=== PATIENT | female | born 1995 | race Caucasian/White ===

== ENCOUNTER 2022-06-05 15:17 | Outpatient (CLI) | payer BC, SELFPAY ==
--- NOTE | 2022-06-05 15:30 | MR_ITS ---
[address] [address] Phone:?[phone] Fax:?[phone] Referring Physician Information: Pete Dickson [address] [facility] [address] Phone:?[phone] Fax:?[phone] Patient:Marco Maldonado D.O.B:?1995 Sex:?Female Phone:?[phone] [facility] MRN:?[id number] Exam Date:?06/05/2022 ? EXAM: MRI OF THE RIGHT ANKLE WITHOUT CONTRAST CLINICAL INFORMATION: Right ankle pain. Status post injury. No history of surgery to this area. Evaluate anterior talofibular ligament injury. TECHNICAL INFORMATION: Sagittal STIR as well as axial, sagittal and coronal PD and T2-weighted images were acquired. INTERPRETATION: Tibiotalar joint: No discrete talar dome osteochondral lesion. The tibiotalar joint osteochondral surfaces appear relatively preserved. No abnormal joint effusion and without discrete loose body. Subtalar joints: No discrete osteochondral lesion. No other subchondral signal abnormality. No abnormal joint effusion and without discrete loose body. Other tarsal joints: Remainder of visualized joints of the hindfoot and midfoot do not demonstrate significant narrowing or effusion. There is no evidence of for an occult fracture, osseous contusion or stress reaction. There is no other bone marrow edema pattern identified. Ligaments: The anterior tibiofibular ligament is intact. Residua of an anterior talofibular ligament sprain injury and associated low- grade partial-thickness tear. The posterior tibiofibular and posterior talofibular ligaments are intact. Additional sprain injury with poorly defined partial tearing involves the calcaneofibular ligament. The superficial and deep portions of the medial deltoid ligament are intact. Tendons: The peroneus longus and brevis tendons are intact. No significant tendinopathy, and without tenosynovitis, tendon split or tendon disruption. The posterior tibialis, flexor digitorum and flexor hallucis longus tendons are intact. There is a mild appearance of posterior tibialis tendinopathy inserting upon the navicular. There is a borderline mild appearance of tenosynovitis. The extensor tendons are intact. The Achilles tendon is intact. Plantar aponeurosis: The plantar fascia origin appears normal in signal intensity and morphology. The remainder of the visualized plantar aponeurosis appears unremarkable. Neurovascular structures: The posterior tibial neurovascular structures appear unremarkable coursing past the ankle and through the tarsal tunnel. CONCLUSION: 1. Residua of chronic sprain injuries with partial-thickness tearing involving the anterior talofibular ligament and calcaneofibular ligament. 2. No occult fracture, osseous contusion or osteochondral lesion. 3. Mild tibial posterior insertional tendinopathy onto the navicular. There is a borderline mild appearance of tenosynovitis. 4. No other evidence for internal derangement. KES Electronically signed on 06/06/2022 8:04:00 AM by Tien Mcdaniel M.D.
== END 2022-06-05 15:18 | disposition home or self-care (01) ==
PROVIDERS: PCP Family Medicine; Visit Provider Physician Assistant Surgical
DX: M25.571 Pain in right ankle and joints of right foot (principal); S93.411A Sprain of calcaneofibular ligament of right ankle, initial encounter; S93.491A Sprain of other ligament of right ankle, initial encounter
CPT/HCPCS: 73721

== ENCOUNTER 2023-01-18 11:04 | Outpatient (CLI) | payer BC, SELFPAY | END 2023-01-18 11:05 | disposition home or self-care (01) | PROVIDERS: PCP Family Medicine; Visit Provider Family Medicine | DX: Z01.419 Encounter for gynecological examination (general) (routine) without abnormal findings (principal); D64.9 Anemia, unspecified; R53.83 Other fatigue; Z13.6 Encounter for screening for cardiovascular disorders; Z11.3 Encounter for screening for infections with a predominantly sexual mode of transmission | CPT/HCPCS: 80053; 80061; 82607; 82728; 83540; 83550; 84443 ==

== ENCOUNTER 2024-02-04 11:00 | Outpatient (RCR) | payer BC, SELFPAY | END 2024-04-06 10:33 | disposition home or self-care (01) | PROVIDERS: PCP Family Medicine; Visit Provider Family Medicine | DX: R51.9 Headache, unspecified (principal); Q79.60 Ehlers-Danlos syndrome, unspecified; Z51.89 Encounter for other specified aftercare | CPT/HCPCS: 97110; 97140; 97161 ==

== ENCOUNTER 2024-02-18 07:26 | Outpatient (CLI) | payer BC, SELFPAY ==
--- OUTSIDE RECORDS SUMMARY | 2024-02-24 08:01 | XMS_ITS | Clinical Summary ---
Author Name Unknown Organization [employer] [facility] Address [place], [place] [address] Care Team Providers Care Research Associate Policy Name Role Phone Jessie Menendez MD Primary Care Provider + Allergies Active Allergy Reactions Criticality Noted Date Comments Methylprednisolone Anaphylaxis,Hives High 07/04/2020 Montelukast Anaphylaxis,Hives High 07/04/2020 Naproxen Anaphylaxis High 07/04/2020 Social History Tobacco Use Types Packs/Day Years Used Date Smoking Tobacco: Never Assessed Sex and Gender Information Value Date Recorded Sex Assigned at Not on file Gender Identity Not on file Sexual Orientation Not on file Plan of Treatment Health Maintenance Due Date Last Done Comments Tdap 2005 Depression screening for age 12+ 2006 HIV for age 15-65 2009 BMI (ht and wt on same day) for age 18+ 2012 Hepatitis C screening for ag e 18-79 2012 Tetanus booster 2014 Pap test for age 21-65 2015 COVID-19 vaccine series (2022- season) 2023 Influenza for age 9-49 06/21/2024 Pneumococcal series for age 6-64 Aged Out No longer eligible based on patient's age to complete this topic Care Teams Research Associate Policy Relationship Specialty Start Date End Date Jessie Menendez MD [address] [place] [address] PCP - General Family Practice 06/02/20
== END 2024-02-18 07:27 | disposition home or self-care (01) ==
LOC: NFLDREF 02-24 08:00
PROVIDERS: PCP Family Medicine; Referring Provider Family Medicine; Visit Provider Family Medicine
DX: D64.9 Anemia, unspecified (principal); E78.5 Hyperlipidemia, unspecified; R73.09 Other abnormal glucose; R79.89 Other specified abnormal findings of blood chemistry; M81.0 Age-related osteoporosis without current pathological fracture
CPT/HCPCS: 80053; 80061; 82306; 82607; 82728

== ENCOUNTER 2024-07-21 17:20 | Emergency (ER) | payer BC, SELFPAY ==
[2024-07-21 17:31] VITALS: BP 151/81; PULSE 96; RESP 20; TEMP 36.4; O2SAT 98; BMI 35.8
--- NOTE | 2024-07-21 17:42 | ED_ITS ---
HPI - General Adult General Date Seen: 07/21/24 Chief complaint: Shoulder Injury/Pain Stated complaint: L arm dislocated, discolored/swollen, numb Time Seen by Provider: 07/21/24 17:35 History of Present Illness HPI narrative: 28-year-old female presenting to the ER today with her father (who is a security services manager here at [facility]) for left arm at discoloration and left shoulder pain. 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 She thinks she dislocated her shoulder last week either Saturday or Saturday. She is not sure when. She was having some shoulder pain last week and was able to pop her shoulder back into the socket at home by rolling her shoulder backwards. Even after that he is still having some pain so she went to her chiropractor and they apparently manipulated her shoulder and were able to get it fully reduced. Even since then she has been having ongoing shoulder pain. She went to the urgent care here in [place] last week on 07/17. According to that visit note, after the shoulder was put back place her left arm became numb, red, swollen. She was having some stabbing pain in her left shoulder or left lung last week. She had shoulder x-ray in the urgent care on 07/17 and was read as normal by Radiology. IMPRESSION: 1. No acute osseous injuries or abnormalities are noted. Since then she has had ongoing pain in her anterior shoulder the radiates through to the back of the shoulder. She has been moving her shoulder little bit during the day and coming out of the sling, as advised by her urgent care provider. She also notes that she has had a couple more episodes where she seems to get swollen in the dorsum of her left hand with a little bit of purplish discoloration. She took a picture of her hands with her smart phone during 1 of the episodes. She showed me the picture. There is perhaps very mild duskiness there but no obvious discoloration of the hand. It is not red. It is not obviously cyanotic in the picture. With the ongoing pain and the intermittent symptoms in her left arm she is our primary care for recheck this morning. Workup was reassuring. She was set up with an appointment to see the [place] orthopedic clinic next Saturday. However her primary care doctor told her that if she has any more discoloration or arm she should come to the ER. She was typing on her computer using both hands when she noted another episode of discoloration her left hand that happened this afternoon. With this she came here to the ER. Now that she is here the color in her left arm is back to normal. Related Data Home Medications ?Medication ?Instructions ?Recorded ?Confirmed ascorbic acid (vitamin C) 500 mg mg PO 01/18/23 07/21/24 capsule B-complex with vitamin C 1 tab PO QDAY 03/13/23 07/21/24 cholecalciferol (vitamin D3) 50 50 mcg PO QDAY 03/13/23 07/21/24 mcg (2,000 unit) capsule coenzyme Q10 100 mg capsule 100 mg PO QDAY 03/13/23 07/21/24 cetirizine 10 mg tablet 10 mg PO DAILY PRN 01/01/24 07/21/24 nortriptyline 10 mg capsule 20 mg PO QHS 06/16/24 07/21/24 rizatriptan 5 mg tablet See Rx Instructions PO .COMPLEX 06/16/24 07/21/24 Previous Rx's ?Medication ?Instructions ?Recorded albuterol sulfate 90 mcg/actuation 2 inh inhalation Q2-6H PRN 02/26/24 aerosol inhaler shortness of breath or wheezing #6.7 grams fluticasone furoate 100 1 inh inhalation QDAY #30 ea 02/26/24 mcg/actuation blister powder for inhalation (Arnuity Ellipta) Allergies Allergy/AdvReac Type Severity Reaction Status Date / Time methylprednisolone Allergy Severe hives, Verified 07/21/24 11:04 airway swelling montelukast [From Singulair] Allergy Severe airway Verified 07/21/24 11:04 swelling, hives naproxen Allergy Severe throat Verified 07/21/24 11:04 swelling sulfate ion Allergy Intermediate rash from Verified 07/21/24 11:04 shampoo bee venom protein (honey bee) Allergy Verified 07/21/24 11:04 coconut Allergy Verified 07/21/24 11:04 pine nut Allergy Verified 07/21/24 11:04 Sulfa (Sulfonamide Allergy Verified 07/21/24 11:04 Antibiotics) [facility] Medical History (Updated 07/21/24 @ 20:15 by Matt Salomon MD) History of febrile seizure ?Z87.898 - Personal history of other specified conditions (ICD-10) Vegetarian diet ?Z78.9 - Other specified health status (ICD-10) Obesity (BMI 30-39.9) ?E66.9 - Obesity, unspecified (ICD-10) Hypersomnia ?G47.10 - Hypersomnia, unspecified (ICD-10) Hypermobility syndrome (04/07/12) ?M35.7 - Hypermobility syndrome (ICD-10) Concussion (~2015) ?S06.0X9A - Concussion with loss of consciousness of unspecified duration, initial encounter (ICD-10) Concussion (12/10/09) ?S06.0X9A - Concussion with loss of consciousness of unspecified duration, initial encounter (ICD-10) Atypical chest pain ?R07.89 - Other chest pain (ICD-10) Surgical History (Updated 02/26/24 @ 06:15 by Jessie Menendez MD) Hx of colposcopy with cervical biopsy (02/2023) ?Z98.890 - Other specified postprocedural states (ICD-10) History of knee surgery (2010) ?Z98.890 - Other specified postprocedural states (ICD-10) Family History (Updated 03/20/23 @ 10:31 by Leticia Li ~ INSURANCE CLAIMS SPECIALIST, INSURANCE CLAIMS SPECIALIST) Father Diabetes Type 2 diabetes mellitus Uncle Heart disease, Onset Age: 45 Colon cancer, Onset Age: 60 Mother FH: colon polyps Maternal Grandfather Prostate cancer, Onset Age: 68 Paternal Grandmother Brain cancer Paternal Grandfather Type 2 diabetes mellitus Aunt Breast cancer Maternal Grandmother Heart disease Other Asthma Social History (Updated 02/24/24 @ 07:49 by Veronica Huggins ~ CTA) Narrative: , research program manager, no kids, lives in [place] Lifetime nonsmoker Does not drink alcohol, no drug use No regular exercise Vegetarian diet What is your current living situation?: I presently have a place to live Problems where you live: no known problems In the past 12 months, utilities in danger of being shut off: no In past 12 months, lack of transportation kept you from medical appts, meetings, work, or getting things needed for daily living: no In the past 12 mos, have been you worried that your food would run out before you had money to buy more?: never true In the past 12 mos, the food you bought just didn't last and you didn't have money to buy more?: never true Smoking Status: Never smoker Do you use any of these nicotine containing products: None Second hand tobacco smoke exposure: No How often do you have a drink containing alcohol: monthly or less AUDIT-C Alcohol total score: 1 Non-prescribed substance use: denies use How often does anyone, including family, friends and others, physically hurt you : never How often does anyone, including family, friends and others, insult or talk down to you: rarely How often does anyone, including family, friends and others, threaten you with harm: never How often does anyone, including family, friends and others, scream or curse at you: rarely Little interest or pleasure in doing things: not at all Feeling down, depressed, or hopeless: not at all service: No Exam Narrative: Exam Narrative: Constitutional: Appears well-developed and well-nourished. Alert. Conversant. Non toxic. HENT: Head: Atraumatic. Nose: Nose normal. Mouth/Throat: Oral mucosa is clear and moist. no trismus. Pharynx normal. Tonsils symmetric. No tonsillar enlargement, erythema, or exudate. Eyes: Conjunctivae normal. EOM normal. Pupils equal, round, and reactive to light. No scleral icterus. Neck: Normal range of motion. Neck supple. No tracheal deviation present. No JVD. No posterior midline tenderness. No tenderness in the lateral neck. No swelling. Cardiovascular: Normal rate, regular rhythm. No gallop. No friction rub. No murmur heard. Symmetric radial artery pulses . Strong brachial pulse. Normal brisk cap refill and all 5 finger nail beds of her left hand. Pulmonary/Chest: Effort normal. No stridor. No respiratory distress. No wheezes. No rales. No rhonchi . No chest wall tenderness. Musculoskeletal: RUE: Normal range of motion. No tenderness. No deformity LUE: She does have tenderness over the anterior and lateral left shoulder. There is no swelling. No bruising there. Range of motion is somewhat limited by pain. She is able to abduct to about 30? and . internally rotate her shoulder to get her hand pressed against her abdomen. External rotation just beyond neutral. Forward flexion limited by pain. No crepitus. No bony deformity. Humerus and humeral shaft nontender. Biceps mildly tender on the biceps tendon anteriorly at the shoulder. Triceps nontender. Elbow nontender. Normal flexion extension. But normal pronation and supination of the forearm. Normal flexion extension of the wrist. Normal flexion extension of the fingers. Intact radial, median, ulnar nerve function. RLE: Normal range of motion. No edema. No tenderness. No deformity LLE: Normal range of motion. No edema. No tenderness. No deformity Neurological: Alert and oriented to person, place, and time. Normal strength. CN II-VII intact. No sensory deficit. GCS eye subscore is 4. GCS verbal subscore is 5. GCS motor subscore is 6. Normal coordination . Normal C4, C5, C6, C7, C8, T1 sensation in both upper extremities. Tobacco Conditioner strength 5 over/of bilaterally. Skin: Skin is warm and dry. No rash noted. No pallor. Normal capillary refill. Psychiatric: Normal mood. Normal affect. Const: Vital Signs, click to edit/add: Vital Signs - 24 hr 07/21/24 17:31 Temperature 97.6 F Pulse Rate [Pulse Oximeter] 96 Respiratory Rate 20 Blood Pressure [Ri ght Upper Arm] 151/81 H Pulse Oximetry 98 Oxygen Delivery Me thod Room Air Course Vital Signs Vital signs: Initial Vital Signs Temperature 97.6 F 07/21/24 17:31 Temperature Source Temporal Artery Scan 07/21/24 17:31 Pulse Rate 96 07/21/24 17:31 Pulse Rhythm Regular 07/21/24 17:31 Respiratory Rate 20 07/21/24 17:31 Blood Pressure 151/81 H 07/21/24 17:31 Blood Pressure Mean 104 07/21/24 17:31 Blood Pressure Position Sitting 07/21/24 17:31 Pulse Oximetry 98 07/21/24 17:31 Oxygen Delivery Method Room Air 07/21/24 17:31 Vital Signs Temperature 97.6 F 07/21/24 17:31 Pulse Rate 96 07/21/24 17:31 Respiratory Rate 20 07/21/24 17:31 Blood Pressure 151/81 H 07/21/24 17:31 Pulse Oximetry 98 07/21/24 17:31 Oxygen Delivery Method Room Air 07/21/24 17:31 Temperature 97.6 F 07/21/24 17:31 Pulse Rate 96 07/21/24 17:31 Respiratory Rate 20 07/21/24 17:31 Blood Pressure 151/81 H 07/21/24 17:31 Pulse Oximetry 98 07/21/24 17:31 Oxygen Delivery Method Room Air 07/21/24 17:31 Medications Administered Medications: Discontinued Medications Generic Name Dose Route Start Last Admin Trade Name Ezequiel PRN Reason Stop Dose Admin Ibuprofen 600 mg 07/21/24 18:14 07/21/24 18:42 Ibuprofen 600 Mg Tablet PO 07/21/24 18:15 600 mg ONCE ONE Administration Medical Decision Making MDM Narrative Medical decision making narrative: 28-year-old female with a history of Cielo-Danlos and joint hypermobility presenting to the ER with left shoulder pain and intermittent left slow arm swelling and left arm discomfort.. She thinks she dislocated her shoulder last week but does not recall a specific date or mechanism. She may have dislocated her sleep. She was able to spontaneously relocate her shoulder at home last week but felt like it might still be partly out of place a went to her chiropractor who was able to manipulate it back into the socket. Since then she has been having a few episodes where her left hand seems to get slightly dusky and purplish and she has also had ongoing pain in her left anterior shoulder radiate through to the back of her shoulder. She already has been seen in the urgent care with x-rays, done last Saturday that showed no evidence for any ongoing dislocation. No evidence for a shoulder fracture or Hill-Sachs injury or Bankart lesion. She has been placed into a sling which she has been wearing most of the time at home but not all the time. She has had intermittent episodes where she feels like her left hand gets a little bit dusky and purplish colored. Her circulation is normal on my exam here. We did do a venous ultrasound of her left upper extremity which shows no evidence for DVT. She is not having any symptoms affecting her right arm, or her neck or face to suggest a mediastinal mass any other external compression of the veins in her chest. Differential would also include arterial insufficiency. She has strong radial and brachial pulses and normal brisk cap refill at this time. At this point I I think that the risk of radiation with obtaining a CT angiogram of her chest and arm would outweigh the benefit. Clinical presentation just is not consistent with an acute arterial occlusion or in acute limb ischemia. She still has some ongoing shoulder pain. We administered ibuprofen here in the ER without much improvement. She declines offered opiates. Therefore will try to manage her pain conservatively at home with rest in a sling, ice as needed, Tylenol or ibuprofen alternating as needed. She will follow-up with the [facility] for further evaluation of her shoulder. She will call tomorrow to see if she can move up her appointment which is currently scheduled for 1 week from now. Precautions for return to the ER reviewed with the patient and her father. Imaging Data US venous LUE: Attestation: I have reviewed the pertinent imaging results. Radiologist's impression: Impression: No evidence of left upper extremity DVT. Discharge Plan Discharge Clinical Impression: Acute pain of left shoulder, Left arm swelling Patient Disposition: Home, Self-Care Condition: Stable Instructions: Shoulder Pain (ED) Additional Instructions: As we discussed, please monitor the symptoms in your arm carefully. If you have worsening swelling in her arm, worsening pain, weakness in your arms, or other worsening symptoms come back to the ER right away. Please continue to wear the sling when you are up and around. Be sure to take the sling off to perform gentle mmlam-ok-vcycji exercises for her shoulder at least 2-3 times per day. Use ibuprofen or Tylenol if needed for your pain. Please follow-up with the orthopedic clinic for a recheck next week. Prescriptions: No Action ascorbic acid (vitamin C) 500 mg capsule PO cetirizine 10 mg tablet 10 mg PO DAILY PRN cholecalciferol (vitamin D3) 50 mcg (2,000 unit) capsule 50 mcg PO QDAY B-complex with vitamin C Tablet 1 tab PO QDAY coenzyme Q10 100 mg capsule 100 mg PO QDAY Arnuity Ellipta 100 mcg/actuation blister with device 1 inh inhalation QDAY Qty: 30 12RF albuterol sulfate 90 mcg/actuation HFA aerosol inhaler 2 inh inhalation Q2-6H PRN (Reason: shortness of breath or wheezing) Qty: 6.7 3RF Rx Instructions: provide spacer also nortriptyline 10 mg capsule 20 mg PO QHS rizatriptan 5 mg tablet See Rx Instructions PO .COMPLEX Rx Instructions: take 1 tablet at onset of headache; if no relief, may repeat 1 tablet after at least 2 hrs PO Follow Up/Referrals: Jessie Menendez MD [Primary Care Provider] - Stand Alone Forms: [id number] Info Instructions
--- NOTE | 2024-07-21 18:14 | CRLHL7_ITS ---
For Patients: As a result of the Century Cures Act, medical imaging exams and procedure reports are released immediately into your electronic medical record. You may view this report before your referring provider. If you have questions, please contact your health care provider. Indication: Left arm pain, recent dislocation, discoloration. Technique: Ultrasound venous duplex left upper extremity. Compression venous exam was performed using cesar-scale, color Doppler, and spectral Doppler imaging. Comparison: None. Findings: LEFT Internal jugular: Patent. Innominate: Patent. Subclavian: Patent. Axillary: Patent. Brachial: Patent. Basilic: Patent. Cephalic: Patent. RIGHT Internal jugular: Not evaluated. Impression: No evidence of left upper extremity DVT. Dictated by Vinny Toledo MD @ 07/21/2024 8:02:09 PM (Electronically Signed)
--- OUTSIDE RECORDS SUMMARY | 2024-07-21 18:26 | XMS_ITS | Clinical Summary ---
Author Organization [employer] [facility] Address [place], [place] [address] Care Team Providers Care Paraprofessional Aide Teacher Name Role Phone Jessie Menendez MD Primary [...] ag e 18-79 2012 Tetanus booster 2014 COVID-19 vaccine series ( season) 2024 Influenza for age 9-49 06/21/2024 Pap test for age 21-65 02/25/2027 , 02/26/2024 Pneumococcal series for age 6-64 Aged Out No longer eligible b ased on patient's age to complete this topic Procedures Procedure Name Priority Date/Time Associated Diagnosis Comments HPV HIGH RISK Routine 02/26/2024 7:58 AM CDT from Last 3 Months or Most Recently Relevant to Health Maintenance Results * HPV HIGH RISK (02/26/2024 7:58 AM CDT) TYPE 16 Negative Negative 02/28/2024 5:12 PM CDT [facility] TYPE 18 Negative Negative 02/28/2024 5:12 PM CDT [facility] OTHER HIGH RISK TYPES Negative Negative 02/28/2024 5:12 PM CDT [facility] Other (Cervical/Vagina l) 02/26/2024 7:58 AM CDT 02/27/2024 12:04 PM CDT Narrative [facility] - 02/28/2024 5:12 PM CDT HPV types 16, 18, 31, 33, 35, 39, 45, 51, 52, 56, 58, 59, 66 and 68 DNA were undetectable or below the pre-set threshold. Methodology: Sheyla Rody 4800 HPV Test Jessie Menendez MD MICROBIOLOGY [facility] [address] [place] [address], from Last 3 Months or Most Recently Relevant to Health Maintenance Care Teams Paraprofessional Aide Teacher Relationship Specialty Start Date End Date Jessie Menendez MD [address] [place] [address] PCP - General Family Practice 06/02/20
[2024-07-21] MEDS: IBUPROFEN 600 MG TABLET PO (18:42)
== END 2024-07-21 20:22 | disposition home or self-care (01) ==
PROVIDERS: Emergency Provider Emergency Medicine; PCP Family Medicine
DX: M25.512 Pain in left shoulder (principal)
CPT/HCPCS: 93971; 99282; 99283; A9270

== ENCOUNTER 2024-08-12 08:56 | Outpatient (CLI) | payer BC, SELFPAY ==
--- OUTSIDE RECORDS SUMMARY | 2024-08-12 08:59 | XMS_ITS | Clinical Summary ---
Author Organization [employer] [facility] Address [place], [place] [address] Care Team Providers Care Retail Delivery Driver Name Role Phone Jessie Menendez MD Primary [...] 06/21/2024 Pap test for age 21-65 02/25/2027 4, 02/26/2024 Pneumococcal series for age 6-64 Aged [...] 16 Negative Negative 02/28/2024 5:12 PM CDT [facility] TYPE 18 Negative Negative 02/28/2024 5:12 PM CDT [facility] OTHER HIGH RISK TYPES Negative Negative 02/28/2024 5:12 PM CDT [facility] Other (Cervical/Vagina l) 02/26/2024 7:58 AM CDT 02/27/2024 12:04 PM CDT Narrative [facility] - 02/28/2024 5:12 PM CDT HPV types 16, 18, 31, 33, 35, 39, 45, 51, 52, 56, 58, 59, 66 and 68 DNA were undetectable or below the pre-set threshold. Methodology: Sheyla Ordy 4800 HPV Test Jessie Menendez MD MICROBIOLOGY [facility] [address] [place] [address], from Last 3 Months or Most Recently Relevant to Health Maintenance Care Teams Retail Delivery Driver Relationship Specialty Start Date End Date Jessie Menendez MD [address] [place] [address] PCP - General Family Practice 06/02/20
--- NOTE | 2024-08-12 09:15 | CRLHL7_ITS ---
For Patients: As a result of the Century Cures Act, medical imaging exams and procedure reports are released immediately into your electronic medical record. You may view this report before your referring provider. If you have questions, please contact your health care provider. Indication: STABBING PAIN, EVAL LABRAL TEAR AND ROTOR CUFF PATHOLOGY Comparison: 07.17.24 Procedure : Informed consent was obtained. The site was marked. Time-out was performed. The skin of the left shoulder was cleansed with ChloraPrep. A sterile drape was placed. 8 cc of 1 percent lidocaine was administered for superficial anesthesia. Subsequently a 22 gauge spinal needle was introduced into the left shoulder joint under intermittent fluoroscopic guidance. Injection of 2 cc nonionic Omnipaque 240 contrast confirmed intra-articular location. Subsequently 11 cc of dilute gadolinium were injected. The needle was removed and hemostasis achieved with direct pressure. A dressing was placed. The patient tolerated the procedure well without immediate complication and was immediately sent to MRI for imaging. Total fluoroscopy time 25 seconds. Impression: Successful fluoroscopically guided left shoulder arthrogram for MRI. Dictated by Vinny Badillo MD @ 08/12/2024 12:39:00 PM (Electronically Signed)
--- NOTE | 2024-08-12 10:15 | MR_ITS ---
[address] [address] Phone:?[phone] Fax:?[phone] Referring Physician Information: ABEBA Dumont [address] [facility] [address] Phone:?[phone] Fax:?[phone] Patient:Marco Maldonado D.O.B:?1995 Sex:?Female Phone:?[phone] [facility] MRN:?[id number] Exam Date:?08/12/2024 EXAM: MR ARTHROGRAM of the LEFT SHOULDER CLINICAL HISTORY: Ongoing left shoulder pain. Evaluate for labral tear and rotator cuff pathology. COMPARISON: Plain radiographs 07/17/2024. TECHNICAL: Exam performed after fluoroscopically-guided gadolinium arthrography of the glenohumeral joint of the left shoulder, reported separately. MRI sequences of the left shoulder: coronal obliques: PD, PD FS, T1FS sagittal obliques: PDFS, T2 axials: PD, PDFS FINDINGS: Bones: No fracture or suspicious bone marrow signal abnormality. Coracoacromial arch: Acromion: No os acromiale. Type I-II acromion. Acromiohumeral space: The bony distance is unremarkable. Coracohumeral space: The bony distance is unremarkable. Acromioclavicular joint: No acute injury, arthropathy, or inferior hypertrophy. Coracoclavicular ligament: The coracoclavicular ligament is intact. Rotator cuff and muscles/tendons: Supraspinatus: The supraspinatus tendon and muscle are intact. Infraspinatus: The infraspinatus tendon and muscle are intact. Teres minor: The teres minor tendon and muscle are intact. Subscapularis: The subscapularis tendon and muscle are intact. Labrum: The labrum is intact. Proximal biceps tendon, long head and short heads: The long and short heads of the proximal biceps tendon are intact. Glenohumeral joint: Intra-articular contrast is present secondary to arthrogram injection. No discrete chondral defect or subchondral bone marrow edema/subchondral cystic change is seen. No convincing evidence of capsular edema or thickening. No glenohumeral ligament injury is seen. Bursae: Subacromial-subdeltoid: No convincing subacromial bursal thickening/bursitis. Subcoracoid: No convincing subcoracoid bursal thickening/bursitis. IMPRESSION: Unremarkable MR arthrogram of the left shoulder without rotator cuff tendon pathology, rotator cuff muscular atrophy, biceps pathology, labral tear, or glenohumeral injury. No Hill-Sachs or reverse Hill-Sachs lesion. RCB Electronically signed on 08/13/2024 10:18:00 AM by Thor Ramos M.D.
== END 2024-08-12 08:57 | disposition home or self-care (01) ==
LOC: RAD 08:57
PROVIDERS: PCP Family Medicine; Visit Provider Physician Assistant Surgical
DX: M25.512 Pain in left shoulder (principal)
CPT/HCPCS: 23350; 73222; 77002; A9575; Q9966